=== PATIENT | female | born 1970 | race Caucasian/White ===

== ENCOUNTER 2016-10-15 15:52 | Emergency (ER) | payer MEDICAID ==
[2016-10-15] MEDS ORDERED: ONDANSETRON ODT 4 MG TAB ONE (16:31)
[2016-10-15] MEDS ORDERED: Meclizine HCl 25 MG TAB ONE (16:33)
== END 2016-10-15 17:34 | disposition home or self-care (01) ==
LOC: ER 15:52
DX: R42 Dizziness and giddiness (principal); H65.03 Acute serous otitis media, bilateral; J02.9 Acute pharyngitis, unspecified; J01.00 Acute maxillary sinusitis, unspecified; J01.10 Acute frontal sinusitis, unspecified
CPT/HCPCS: 87804; 87880

== ENCOUNTER 2016-10-23 15:10 | Emergency (ER) | payer MEDICAID | END 2016-10-23 18:37 | disposition home or self-care (01) | LOC: ER 15:10 | DX: F41.1 Generalized anxiety disorder (principal); Z79.899 Other long term (current) drug therapy; Z87.891 Personal history of nicotine dependence | CPT/HCPCS: 36415; 80053; 80307; 80320; 80329; 81003; 84439; 84443; 85025; 85610 ==